=== PATIENT | female | born 1980 | race Caucasian/White ===

== ENCOUNTER 2017-02-25 21:11 | Emergency (ER) | payer OTHER ==
[2017-02-25 21:21] VITALS: BP 126/70
[2017-02-25] MEDS ORDERED: Ketorolac INJ* 60 MG/2 ML VIAL IM ONE (21:30)
--- NOTE | 2017-02-25 21:53 | UC ---
Throat Pain/Nasal Rod HPI - HPI Summary HPI Summary: SIX DAYS OF SORE THROAT. TODAY DEVELOPED BODY ACHES, FEVER AND CHILLS. NO TYLENOL OR IBUPROFEN TODAY. NO HEADACHE. NO NECK PAIN. NO ABDOMINAL PAIN. NO SOB. NO CHEST PAIN. - History of Current Complaint Chief Complaint: UCRespiratory Stated Complaint: FEVER,SORE THROAT,RUNNY NOSE,COUGH Time Seen by Provider: 02/25/17 21:23 Hx Obtained From: Patient Hx Last Menstrual Period: march 2016, recent pregnacy Onset/Duration: Gradual Onset, Lasting Days, Worse Since - TODAY Severity: Moderate Cough: None Associated Signs & Symptoms: Positive: Dysphagia, Hoarseness, Sinus Discomfort, Nasal Discharge, Fever - Epiglottits Risk Factors Epiglottis Risk Factors: Negative - Allergies/Home Medications Allergies/Adverse Reactions: Allergies Allergy/AdvReac Type Severity Reaction Status Date / Time Clavulanic Acid AdvReac Vomiting Verified 02/25/17 21:21 Erythromycin AdvReac Vomiting Verified 02/25/17 21:21 Home Medications: Home Medications NK [No Home Medications Reported] 02/25/17 [History Confirmed 02/25/17] PMH/Surg Hx/FS Hx/Imm Hx Previously Healthy: Yes - Surgical History Surgical History: Yes Surgery Procedure, Year, and Place: Bilateral Bunionectomy, 1994 - Family History Known Family History: Positive: Cardiac Disease, Hypertension, Diabetes - Social History Occupation: Employed Full-time Lives: With Family Alcohol Use: Occasionally Substance Use Type: None Smoking Status (MU): Never Smoked Tobacco - Immunization History Most Recent Influenza Vaccination: no Review of Systems Constitutional: Fever, Chills, Fatigue Skin: Negative ENT: Sore Throat, Nasal Discharge Respiratory: Negative Cardiovascular: Negative Gastrointestinal: Negative Genitourinary: Negative Motor: Negative Neurovascular: Negative Musculoskeletal: Myalgia Neurological: Negative Psychological: Negative Is Patient Immunocompromised?: No All Other Systems Reviewed And Are Negative: Yes Physical Exam Triage Information Reviewed: Yes Appearance: No Pain Distress, Well-Nourished, Ill-Appearing - MILDLY Vital Signs: Initial Vital Signs Temp 100.2 F 02/25/17 21:16 Pulse 135 02/25/17 21:16 Resp 16 02/25/17 21:16 BP 126/70 02/25/17 21:16 Pulse Ox 99 02/25/17 21:16 Vital Signs Reviewed: Yes Eye Exam: Normal ENT: Positive: Hearing grossly normal, Pharyngeal erythema, TMs normal Dental Exam: Normal Neck exam: Normal Neck: Positive: Supple, Nontender, No Lymphadenopathy. Negative: Nuchal Rigidity - KERNIGS NEGATIVE, Tenderness @, Enlarged Nodes @ Respiratory Exam: Normal Respiratory: Positive: Chest non-tender, Lungs clear, Normal breath sounds, No respiratory distress, No accessory muscle use Cardiovascular: Positive: No Murmur, Pulses Normal, Brisk Capillary Refill, Tachycardia Abdominal Exam: Normal Abdomen Description: Positive: Nontender, No Organomegaly, Soft Musculoskeletal Exam: Normal Neurological Exam: Normal Psychological Exam: Normal Skin Exam: Normal Throat Pain/Nasal Course/Dx - Differential Dx/Diagnosis Differential Diagnosis/HQI/PQRI: Mononucleosis, Pharyngitis, Tonsillitis, URI Provider Diagnoses: VIRAL SYNDROME; PHARYNGITIS; SUSPECT MONO Discharge - Discharge Plan Condition: Stable Disposition: HOME Patient Education Materials: Mononucleosis (ED), Viral Syndrome (ED) Forms: *Work Release Referrals: [facility] [Outside] No Primary Care Phys,NOPCP [Primary Care Provider] - Additional Instructions: PRIMARY CARE: There are four major types of clinical preventive care: immunizations, screening , behavioral counseling (sometimes referred to as lifestyle changes), and chemoprevention. All four apply throughout the life span. It is important to establish and to have access to a Primary Care Physician, not only for follow- up regrding acute and chronic problems, but also for preventative care. PLEASE SEEK EVALUATION AT EMERGENCY DEPARTMENT IF CONDITION WORSENS OR IF NEW SYMPTOMS DEVELOP.
[2017-02-26 10:58] LABS: EBV Response YES
[2017-02-26 11:20] LABS: Add Diff/Slide Review? Slide Review Added; Comments Flag Yes; Hematocrit 39 % (35-47); Hemoglobin 13.1 g/dl (12.0-16.0); Mean Corpuscular HGB Conc 34 g/dl (31-36); Mean Corpuscular Hemoglobin 32 pg (27-31); Mean Corpuscular Volume 93 fL (80-97); Mean Platelet Volume 10 um3 (7.4-10.4); Red Blood Count 4.18 10^6/ul (4.0-5.4); Red Cell Distribution Width 12 % (10.5-15); White Blood Count 9.8 10^3/ul (3.5-10.8)
[2017-02-26 11:29] LABS: Mono Internal Control QC Line Present
[2017-02-26 11:30] LABS: Manual Entry Verification BM
[2017-02-27 12:34] LABS: EBV Capsid Ag IgG Ab Positive (Negative); EBV Capsid Ag IgM Ab Negative (Negative)
== END 2017-02-25 21:59 | disposition home or self-care (01) ==
LOC: UCCORT 21:11
DX: B34.9 Viral infection, unspecified (principal); J02.9 Acute pharyngitis, unspecified; I10 Essential (primary) hypertension; E11.9 Type 2 diabetes mellitus without complications; Z88.8 Allergy status to other drugs, medicaments and biological substances; Z88.1 Allergy status to other antibiotic agents
CPT/HCPCS: 36415; 85025; 86308; 86664; 86665; 87502; 87651; 96372; 99211; G0463; J1885

== ENCOUNTER 2017-05-26 12:56 | Emergency (ER) | payer OTHER ==
--- NOTE | 2017-05-26 14:01 | UC ---
FLU HPI - HPI Summary HPI Summary: 37 female presents to with complaints of body aches, headache, fever and cough that has been ongoing since yesterday morning. Patient states she was fine before waking up yesterday morning. Had a fever of 101.2-102F all day yesterday. Temp today 99.6F. No medications today. Did take ibuprofen yesterday with little relief. States her body aches and headaches are the worst. Denies vomiting but has had intermittent nausea. Admits to fatigue. No abdominal pain. Cough is productive with green/yellow colored sputum. Denies chest pain, trouble breathing and SOB. States boyfriend was just sick with similar symptoms this past friday05/20/17. Admits to nasal congestion and ear pressure. No other complaints. No PMHx. Has not had flu shot this year. - History of Current Complaint Stated Complaint: ACHES, HEADACHE Time Seen by Provider: 05/26/17 13:40 Hx Obtained From: Patient Hx Last Menstrual Period: tubal ligation 03/02 Onset/Duration: Sudden Onset, Lasting Days - 2, Still Present, Worse Since Severity Currently: Mild Severity Initially: Moderate Pain Intensity: 4 Pain Scale Used: 0-10 Numeric Associated Signs & Symptoms: Positive: Fever, Myalgia, Cough, Sore Throat, Nasal Congestion, Headache - Allergy/Home Medications Allergies/Adverse Reactions: Allergies Allergy/AdvReac Type Severity Reaction Status Date / Time Bacitracin Allergy Blisters Verified 05/26/17 14:16 Clavulanic Acid AdvReac Vomiting Verified 05/26/17 14:16 Erythromycin AdvReac Vomiting Verified 05/26/17 14:16 Home Medications: Home Medications Amitriptyline TAB* [Elavil TAB*] 25 mg PO BEDTIME 05/26/17 [History Confirmed ] Ibuprofen TAB* [Motrin TAB* 600 MG] 600 mg PO ONCE PRN 05/26/17 [History Confirmed 05/26/17] PMH/Surg Hx/FS Hx/Imm Hx - Additional Past Medical History Additional PMH: Denies DM, HTN and asthma. - Surgical History Surgical History: Yes Surgery Procedure, Year, and Place: Bilateral Bunionectomy, 1994 - Family History Known Family History: Positive: Cardiac Disease, Hypertension, Diabetes - Social History Alcohol Use: Occasionally Substance Use Type: None Smoking Status (MU): Never Smoked Tobacco - Immunization History Most Recent Influenza Vaccination: no Review of Systems Constitutional: Fever, Chills, Fatigue Eyes: Negative ENT: Sore Throat, Ear Ache, Nasal Discharge, Sinus Congestion Respiratory: Cough Cardiovascular: Negative Gastrointestinal: Nausea Musculoskeletal: Myalgia Neurological: Headache All Other Systems Reviewed And Are Negative: Yes Physical Exam Triage Information Reviewed: Yes Appearance: No Pain Distress, Well-Nourished, Ill-Appearing Vital Signs: bp: 119/75 hr: 114 resp: 24 temp: 98.8 o2: 99% RA Vital Signs Reviewed: Yes Eyes: Positive: Conjunctiva Clear ENT: Positive: Hearing grossly normal, Pharyngeal erythema, Nasal congestion, TMs normal, Uvula midline. Negative: Tonsillar swelling, Tonsillar exudate Dental: Negative: Percussion Tenderness @ Neck: Positive: Supple, Nontender, No Lymphadenopathy Respiratory: Positive: Chest non-tender, Lungs clear, Normal breath sounds, No respiratory distress, No accessory muscle use. Negative: Decreased breath sounds, Accessory muscle use, Crackles, Rhonchi, Stridor, Wheezing Cardiovascular: Positive: RRR, No Murmur, Pulses Normal, Brisk Capillary Refill , Tachycardia Bowel Sounds: Positive: Present Musculoskeletal: Positive: Strength Intact Neurological: Positive: Muscle Tone Normal Skin Exam: Normal Flu Course/Dx - Course Course Of Treatment: influenza culture obtained and positive for flu b. tachycardia/slightly tachypnic noted, rest of vital signs normal, likely due to the influenza illness. does not appear hypoxic. will give tamiflu due to patient 's symptoms beginning less than 48 hours ago. will give for 5 days. wash hands frequently. drink plenty of fluids/rest. educated on how flu is contagious as she has a 5 month old. continue ibuprofen/tylenol for body aches and fever. no concern for other etiology at this time. follow up with pcp. aware of worsening signs and symptoms to watch out for. - Differential Dx/Diagnosis Differential Diagnosis/HQI/PQRI: Bronchitis, Influenza, Pneumonia, Upper Respiratory Infection Provider Diagnoses: influenza b Discharge - Discharge Plan Condition: Stable Disposition: HOME Prescriptions: Oseltamivir CAP* [Tamiflu CAP*] 75 mg PO BID #10 cap Patient Education Materials: Influenza (ED) Forms: *Work Release Referrals: VINNY Abdi [Primary Care Provider] - Additional Instructions: Take prescribed medication as directed. Continue ibuprofen/tylenol as needed for fever and body aches. Any new or worsening signs/symptoms please seek medical attention. Be cautious of germs as flu is very contagious. Wash hands, cover mouth, do not share drinks. Increase fluid intake and get plenty of rest. Follow up with PCP to ensure improvement.
[2017-05-26 14:16] VITALS: BP 119/75
== END 2017-05-26 14:36 | disposition home or self-care (01) ==
LOC: UCCORT 12:56
DX: J10.1 Influenza due to other identified influenza virus with other respiratory manifestations (principal); Z88.1 Allergy status to other antibiotic agents; Z88.3 Allergy status to other anti-infective agents; Z88.8 Allergy status to other drugs, medicaments and biological substances
CPT/HCPCS: 87502; 99212; G0463

== ENCOUNTER 2018-08-05 13:32 | Emergency (ER) | payer OTHER ==
[2018-08-05 14:15] VITALS: BP 125/82
--- NOTE | 2018-08-05 14:44 | UC ---
Minor Trauma HPI - History of Current Complaint Chief Complaint: UCUpperExtremity Stated Complaint: THIRD FINGER INJURY-RIGHT HAND Time Seen by Provider: 08/05/18 14:09 Hx Obtained From: Patient Hx Last Menstrual Period: 2 weeks ?: No Onset/Duration: Sudden Onset Pain Intensity: 7 Mechanism Of Injury: Blunt Trauma Aggravating Factor(s): Movement Alleviating Factor(s): Nothing Associated Signs And Symptoms: Positive: Ecchymosis - Distal right middle finger with bruising and swelling. Happened last evening when she grabbed for a falling purse and hit the buckle of it with her right middle finger, Swelling - Risk Factors Penetrating Injury Risk Factors: Negative Compartment Syndrome Risk Factors: Pain - Pain on palpation distal right middle finger - Allergies/Home Medications Allergies/Adverse Reactions: Allergies Allergy/AdvReac Type Severity Reaction Status Date / Time bacitracin Allergy Blisters Verified 08/05/18 14:16 clavulanic acid AdvReac Vomiting Verified 08/05/18 14:16 erythromycin base AdvReac Vomiting Verified 08/05/18 14:16 PMH/Surg Hx/FS Hx/Imm Hx Previously Healthy: Yes - Surgical History Surgical History: Yes Surgery Procedure, Year, and Place: Bilateral Bunionectomies, 1994 - Family History Known Family History: Positive: Cardiac Disease, Hypertension, Diabetes - Social History Occupation: Employed Full-time Alcohol Use: Rare Substance Use Type: None Smoking Status (MU): Never Smoked Tobacco - Immunization History Most Recent Influenza Vaccination: no Review of Systems All Other Systems Reviewed And Are Negative: Yes Constitutional: Positive: Negative Skin: Positive: Bruising, Other - Swelling to distal right middle finger with tenderness on palpation. Motor: Positive: Decreased ROM - Able to bend but not fully extend Neurovascular: Positive: Negative Musculoskeletal: Positive: Decreased ROM Neurological: Positive: Negative Psychological: Positive: Negative Is Patient Immunocompromised?: No Physical Exam Triage Information Reviewed: Yes Appearance: Well-Appearing, No Pain Distress, Well-Nourished Vital Signs: Initial Vital Signs Temp 98.4 F 08/05/18 14:10 Pulse 94 08/05/18 14:10 Resp 20 08/05/18 14:10 BP 125/82 08/05/18 14:10 Pulse Ox 100 08/05/18 14:10 Vital Signs Reviewed: Yes Musculoskeletal: Positive: Strength Intact, ROM Limited @ - able to flex but not fully extend right middle finger. Mild bruising distal finger, palmar side Neurological: Positive: Alert - Good periph pulses, neurosensation, cap refill Psychological Exam: Normal Skin Exam: Other - Bruising and mild swelling to distal right middle finger. Minor Trauma Course/Dx - Course Course Of Treatment: X-ray right middle finger: IMPRESSION: NONDISPLACED FRACTURE INVOLVING THE PROXIMAL POLE OF THE RIGHT MIDDLE FINGER. DISTAL PHALANX. An alumafoam splint was applied. Pt is to follow up with orthopedist in the next 2-3 days...call to make an appointment. - Differential Dx/Diagnosis Differential Diagnosis/HQI/PQRI: Fracture Provider Diagnosis: Fracture of finger, distal phalanx, right, closed Discharge - Sign-Out/Discharge Documenting (check all that apply): Patient Departure All imaging exams completed and their final reports reviewed: Yes - Discharge Plan Condition: Good Disposition: HOME Patient Education Materials: Finger Fracture (ED) Referrals: VINNY Abdi [Primary Care Provider] - Additional Instructions: Elevate as much as possible which will reduce the pain and throbbing. Keep the finger splint on at all times, but you may use one for the shower and the other for everyday. Tylenol/Motrin as directed for pain. Follow up with the orthopedist in the next few days...call and make an appointment. Tell them you have a non-displaced fracture of the distal middle finger and an alumafoam splint was applied. - Billing Disposition and Condition Condition: GOOD Disposition: Home - Attestation Statements Provider Attestation: Per institutional requirements, I have reviewed the chart, however, I was not consulted specifically or made aware of this patient by the midlevel provider. I did not personally evaluate, interact with , or disposition this patient.
== END 2018-08-05 15:23 | disposition home or self-care (01) ==
LOC: UCCORT 13:32
DX: S62.633A Displaced fracture of distal phalanx of left middle finger, initial encounter for closed fracture (principal); Z88.1 Allergy status to other antibiotic agents; Z88.0 Allergy status to penicillin; W20.8XXA Other cause of strike by thrown, projected or falling object, initial encounter; Y92.9 Unspecified place or not applicable
CPT/HCPCS: 26750; 73140; 99211; G0463

== ENCOUNTER 2019-07-30 14:31 | Emergency (ER) | payer OTHER ==
[2019-07-30 14:57] VITALS: BP 120/80
--- NOTE | 2019-07-30 16:14 | UC ---
Neck Pain HPI - HPI Summary HPI Summary: 39 yo female with right sided neck pain x 3-4 days no trauma no radicular symptoms - History of Current Complaint Chief Complaint: UCUpperExtremity Stated Complaint: NECK PAIN, HEADACHE Time Seen by Provider: 07/30/19 15:54 Hx Obtained From: Patient Hx Last Menstrual Period: --2017 Onset/Duration Of Injury/Symptoms: Days Mechanism Of Injury: No Known Trauma Timing: Constant Severity: Mild Pain Intensity: 8 Pain Scale Used: 0-10 Numeric Character: Spasmotic, Throbbing Aggravating Factors: Position Associated Signs & Symptoms: Positive: Negative - Allergies/Home Medications Allergies/Adverse Reactions: Allergies Allergy/AdvReac Type Severity Reaction Status Date / Time bacitracin Allergy Blisters Verified 07/30/19 14:52 clavulanic acid AdvReac Vomiting Verified 07/30/19 14:52 erythromycin base AdvReac Vomiting Verified 07/30/19 14:52 Home Medications: Home Medications Albuterol HFA INHALER* [Ventolin HFA Inhaler*] 1 - 2 puff INH Q4H PRN 07/30/19 [ History Confirmed 07/30/19] Escitalopram Oxalate [Lexapro 10 mg] 10 mg PO BEDTIME 07/30/19 [History Confirmed 07/30/19] PMH/Surg Hx/FS Hx/Imm Hx Previously Healthy: Yes - Surgical History Surgical History: Yes Surgery Procedure, Year, and Place: Bilateral Bunionectomies, 1994 - Family History Known Family History: Positive: Cardiac Disease, Hypertension, Diabetes - Social History Alcohol Use: Rare Substance Use Type: None Smoking Status (MU): Never Smoked Tobacco - Immunization History Most Recent Influenza Vaccination: no Review of Systems All Other Systems Reviewed And Are Negative: Yes Constitutional: Positive: Negative Skin: Positive: Negative Eyes: Positive: Negative ENT: Positive: Sore Throat Respiratory: Positive: Negative Cardiovascular: Positive: Negative Gastrointestinal: Positive: Negative Genitourinary: Positive: Negative Motor: Positive: Negative Neurovascular: Positive: Negative Musculoskeletal: Positive: Negative Neurological/Mental Status: Positive: Negative Psychological: Positive: Negative Physical Exam Triage Information Reviewed: Yes Appearance: Well-Appearing, No Pain Distress, Well-Nourished Vital Signs: Initial Vital Signs Temp 98.9 F 07/30/19 14:54 Pulse 87 07/30/19 14:54 Resp 20 07/30/19 14:54 BP 120/80 07/30/19 14:54 Pulse Ox 98 07/30/19 14:54 Vital Signs Reviewed: Yes Eyes: Positive: Conjunctiva Clear ENT: Positive: Pharyngeal erythema Neck: Negative: Supple, Nontender Respiratory: Positive: Lungs clear, Normal breath sounds, No respiratory distress, No accessory muscle use Cardiovascular: Positive: RRR, No Murmur Musculoskeletal: Positive: ROM Intact, No Edema Neurological: Positive: Alert, Other: - non- focal exam Psychological Exam: Normal Skin Exam: Normal Diagnostics - Laboratory Lab Results: strep - Re-Evaluation - Re-Evaluation First Eval Re-Evaluation Time: 16:30 Change: Improved - much better in soft collar Neck Pain Course/Dx - Differential Dx/Diagnosis Provider Diagnosis: Cervical strain, Pharyngitis Discharge ED - Sign-Out/Discharge Documenting (check all that apply): Patient Departure All imaging exams completed and their final reports reviewed: No Studies - Discharge Plan Condition: Stable Disposition: HOME Patient Education Materials: Cervical Strain (ED) Additional Instructions: See your PCP next week if not better advil or aleve soft cervical collar when sitting/standing as needed - Billing Disposition and Condition Condition: STABLE Disposition: Home
== END 2019-07-30 16:36 | disposition home or self-care (01) ==
LOC: UCCORT 14:31
DX: J02.9 Acute pharyngitis, unspecified (principal); S16.1XXA Strain of muscle, fascia and tendon at neck level, initial encounter; X58.XXXA Exposure to other specified factors, initial encounter; Y92.9 Unspecified place or not applicable; Z88.1 Allergy status to other antibiotic agents
CPT/HCPCS: 87651; 99213; G0463

== ENCOUNTER 2019-09-01 17:20 | Emergency (ER) | payer OTHER ==
[2019-09-01 17:38] VITALS: BP 125/80
[2019-09-01 17:59] LABS: Influenza A Molecular Negative (Negative); Influenza B Molecular Negative (Negative)
[2019-09-01] MEDS ORDERED: Acetaminophen TAB* 325 MG PO ONE (18:13)
--- NOTE | 2019-09-01 18:17 | UC ---
FLU HPI - HPI Summary HPI Summary: 39-year-old woman comes in with chief complaint of fever chills body aches and sore throat. Started in the middle the night. Hurts to swallow. Patient did have ibuprofen which did help some with the body aches. No recent travel. She has been exposed to both strep and flu in the last 2 weeks. Minimal rhinorrhea. Has had a cough. No shortness of breath. - History of Current Complaint Chief Complaint: UCRespiratory Stated Complaint: FEVER/BODYACHES/CHILLS/COUGH Time Seen by Provider: 09/01/19 17:43 Hx Last Menstrual Period: no menses since ablation 2 years ago Pain Intensity: 7 - Allergy/Home Medications Allergies/Adverse Reactions: Allergies Allergy/AdvReac Type Severity Reaction Status Date / Time amoxicillin [From Augmentin] Allergy Vomiting Verified 09/01/19 17:35 bacitracin Allergy Blisters Verified 09/01/19 17:35 clavulanic acid Allergy Vomiting Verified 09/01/19 17:35 [From Augmentin] erythromycin base AdvReac Vomiting Verified 09/01/19 17:35 Home Medications: Home Medications Amitriptyline TAB* [Elavil TAB*] 25 mg PO BEDTIME 05/26/17 [History Confirmed ] Ibuprofen TAB* [Motrin TAB* 600 MG] 600 mg PO ONCE PRN 05/26/17 [History Confirmed 09/01/19] Albuterol HFA INHALER* [Ventolin HFA Inhaler*] 1 - 2 puff INH Q4H PRN 07/30/19 [ History Confirmed 09/01/19] Cyclobenzaprine (NF) [Cyclobenzaprine 5 MG (NF)] 5 mg PO TID PRN #15 tab [Rx Confirmed 09/01/19] Escitalopram Oxalate [Lexapro 10 mg] 10 mg PO BEDTIME 07/30/19 [History Confirmed 09/01/19] Cephalexin CAP* [Keflex CAP*] 500 mg PO TID #21 cap 09/01/19 [Rx] PMH/Surg Hx/FS Hx/Imm Hx Previously Healthy: Yes - Surgical History Surgical History: Yes Surgery Procedure, Year, and Place: Bilateral Bunionectomies, 1994 - Family History Known Family History: Positive: Cardiac Disease, Hypertension, Diabetes - Social History Alcohol Use: Rare Substance Use Type: None Smoking Status (MU): Never Smoked Tobacco - Immunization History Most Recent Influenza Vaccination: no Review of Systems All Other Systems Reviewed And Are Negative: Yes Constitutional: Positive: Fever, Chills, Other - see hpi Skin: Positive: Negative Eyes: Positive: Negative ENT: Positive: Sore Throat, Nasal Discharge Respiratory: Positive: Cough. Negative: Shortness Of Breath Cardiovascular: Positive: Negative Gastrointestinal: Positive: Negative Genitourinary: Positive: Negative Motor: Positive: Negative Neurovascular: Positive: Negative Musculoskeletal: Positive: Myalgia Neurological/Mental Status: Positive: Negative Psychological: Positive: Negative Is Patient Immunocompromised?: No Physical Exam Triage Information Reviewed: Yes Appearance: No Pain Distress, Well-Nourished, Ill-Appearing - mild Vital Signs: Initial Vital Signs Temp 98.5 F 09/01/19 17:35 Pulse 122 09/01/19 17:35 Resp 16 09/01/19 17:35 BP 125/80 09/01/19 17:35 Pulse Ox 100 09/01/19 17:35 Vital Signs Reviewed: Yes Eye Exam: Normal Eyes: Positive: Conjunctiva Clear ENT: Positive: Pharynx normal, TMs normal Neck: Positive: Supple Respiratory: Positive: Lungs clear, Normal breath sounds, No respiratory distress Cardiovascular: Positive: Tachycardia Musculoskeletal: Positive: Strength Intact, ROM Intact Neurological: Positive: Alert, Muscle Tone Normal Psychological: Positive: Age Appropriate Behavior Skin Exam: Normal Flu Course/Dx - Course Course Of Treatment: DISCUSSED VIRAL VERSES BACTERIAL INFECTIONS AND THE ROLE OF ANTIBIOTICS. Patient's had a sudden onset of influenza-like illness with fever chills and body aches and sore throat. Does have a dry cough does not have shortness of breath or chest congestion. Has not had any recent travel or known exposures to Covid 19. Given the lack of respiratory symptoms at this time patient is low risk for Covid 19. Has had several days of back pain. No dysuria. We'll treat with Keflex for the possibility of pyelonephritis. Urine cultures pending. - Differential Dx/Diagnosis Provider Diagnosis: Febrile illness, Influenza-like illness Discharge ED - Sign-Out/Discharge Documenting (check all that apply): Patient Departure All imaging exams completed and their final reports reviewed: No Studies - Discharge Plan Condition: Stable Disposition: HOME Prescriptions: Cephalexin CAP* [Keflex CAP*] 500 mg PO TID #21 cap Patient Education Materials: Fever in Adults (ED) Referrals: Koffi Montano PA [Primary Care Provider] - Additional Instructions: FOLLOW UP WITH YOUR DOCTOR IF NOT COMPLETELY IMPROVED. GET REEVALUATED IF NOT IMPROVING OR WORSE OR ANY QUESTIONS OR CONCERNS. - Billing Disposition and Condition Condition: STABLE Disposition: Home
== END 2019-09-01 19:48 | disposition home or self-care (01) ==
LOC: UCCORT 17:20
DX: J11.1 Influenza due to unidentified influenza virus with other respiratory manifestations (principal); R50.9 Fever, unspecified; Z88.0 Allergy status to penicillin; Z88.1 Allergy status to other antibiotic agents
CPT/HCPCS: 81003; 87651; 99212; A9270-GY; G0463; U0002